=== PATIENT | male | born 1970 | race African-American/Black ===

== ENCOUNTER 2016-07-21 18:27 | Inpatient (IN) ==
[2016-07-21] MEDS ORDERED: ONDANSETRON 4 MG/2 ML VIAL IV STA (19:15)
[2016-07-21] MEDS ORDERED: SODIUM CHLORIDE 0.9% 1,000 ML IV STA (19:15)
--- NOTE | 2016-07-21 19:33 | Emergency Department Note ---
IThierry Gwan, am scribing for, and in the presence of, Lucas Rich MD 19 :26. ILayla Charles R, MD, personally performed the services described in this documentation, ascribed by Murray Guadarrama in my presence, and it is both accurate and complete 933 . Arrival - Arrival Chief Complaint: Non-Specific Stated Complaint: BP/SUGAR ED Nursing Triage Note: Pt states that his glucose was over 400 today - pt states that he has had some blurred vision. Pt states that he is out of his diabetic meds x 3 years. Accu check at time of triage 200 Mode of Arrival: Ambulatory Limitations: No Limitations Source: Patient, Old Records Reviewed, RN Notes Reviewed Time Seen by Provider: 07/21/16 19:09 - History of Present Illness HPI Narrative: Pt is a 46 y/o male, with a hx of HTN and NIDDM, who presents to the ED for further evaluation of blurred vision, dizziness, continual thirst and frequent urination. Patient stated that he has been out of his Metformin for the past 3 years and that he has not had a desire to get back on his medication due to being asymptomatic. He confirmed that today while he was working he got so dizzy he felt that he was going to fall and that he has constant tingling in bilateral upper extremities. Nurses note that during triage, pt's Accu check was 200. Patient denies any recreational drug use. He noted that he has a SHx of smoking cigarettes daily and that he has been followed by Dr. Ferguson and MEDICAL TECHNOLOGIST Ria Jasso. During exam, pt was educated on the need for him to follow up with PCP, to get back on his Metformin medications, how the tingling/numbness in bilateral extremities are going to worsen and that he is going to develop irreversible affects of him not taking care of his NIDDM. Patient confirmed that he understood and that noted that he will followup with PCP tomorrow. No other problems/complaints reported in ED. Onset (ago): year(s) Consistency: constant Severity: severe Allergies/Adverse Reactions: Allergies Allergy/AdvReac Type Severity Reaction Status Date / Time No Known Allergies Allergy Unverified 07/21/14 06:50 Home Medications: Home Medications Medication Instructions Recorded Confirmed Type HYDROcodone/ACETAMIN 10-325 [[place] 1 tablet PO Q6H 07/21/14 07/21/14 History 10-325] Pravastatin [Pravachol] 40 mg PO TID 07/21/14 07/21/14 History Zolpidem Tartrate [Ambien] 10 mg PO BEDTIME 07/21/14 07/21/14 History metFORMIN [Glucophage] 500 mg PO BID W/MEALS 07/21/14 07/21/14 History Aspirin EC Tab 81 mg PO DAILY #30 tablet 07/22/14 Rx Lisinopril [Prinivil] 20 mg PO DAILY #30 tablet 07/22/14 Rx Review of System - Review of System 12 point system: reviewed and no additional remarkable complaints except as stated - Review of System Constitutional: Present: as per HPI, other (dizziness; continual thirst ). Absent: chills, fever Gastrointestinal: Absent: abdominal pain, nausea, vomiting, diarrhea Genitourinary male: Present: as per HPI, frequency Musculoskeletal: Present: as per HPI, arm pain (tingling/numbness in both hands/ arms) Skin: Absent: rash, lesions Neurological: Absent: headache, weakness Medical,Surgical,& Family Hx - Medical History Cardio: History of: Hypertension Endocrine: History of: Diabetes Mellitus (NIDDM) Gastrointestinal: History of: GERD Musculoskeletal: History of: Back/Neck Problems, Herniated Disk No history of: Amputation - Surgical History Cardiac Surgeries: Patient Denies: Femoral-Popliteal Bypass Graft, Cardiac Catheterization, Cardiac Surgery, Carotid Endarterectomy, Internal Defibrillator, Vascular Access Devices HEENT Surgeries: Patient denies: Carotid Endarterectomy, Tonsilectomy & Adenoidectomy Abdominal Surgeries: Patient denies: Splenectomy Reproductive Surgeries: Patient denies;: Genitourinary Surgery Orthopedic Surgeries: Patient denies;: Implanted Devices, Orthopedic Surgery, Spinal Surgery, Total Hip Replacement, Total Knee Replacement - Family History Family History: Reports;: Family Diabetes (mom and dad) - Social History Smoking Status: Current every day smoker Frequency of Alcohol Use: Occasionally Type of Drug Use: None Exam Vital Signs: Vital Signs Temperature 98.1 F 07/21/16 20:23 Pulse Rate 110 H 07/21/16 20:23 Respiratory Rate 20 07/21/16 20:23 Blood Pressure 102/76 07/21/16 20:23 O2 Sat by Pulse Oximetry 98 07/21/16 18:33 - General General appearance: alert, in no apparent distress - Head Head exam: Present: atraumatic, normocephalic - Eye Eye exam: Present: normal appearance, PERRL, EOMI - ENT ENT exam: Present: mucous membranes dry - Neck Neck exam: Present: full ROM, trachea midline. Absent: tenderness, meningismus , lymphadenopathy, thyromegaly - Chest Chest inspection: Present: symmetric chest wall rise. Absent: tenderness - Respiratory Respiratory exam: Present: normal lung sounds bilaterally. Absent: respiratory distress - Cardiovascular Cardiovascular exam: Present: regular rate, normal rhythm, normal heart sounds. Absent: murmur, rubs, gallop - Extremities Exam Extremities exam: Present: full ROM - Back Exam Back exam: Present: full ROM. Absent: tenderness - Neurological Exam Neurological exam: Present: alert, oriented X3, CN II-XII intact. Absent: motor sensory deficit - Psychiatric Psychiatric exam: Present: normal affect, normal mood - Skin Skin exam: Present: warm, dry, intact, normal color Course Course Narrative: During exam, pt was educated on the need for him to follow up with PCP and to get back on his Metformin medications, how the tingling/numbness in bilateral extremities are going to worsen and that he is going to develop irreversible affects of him not taking care of his NIDDM. Patient confirmed that he understood and that noted that he will followup with PCP tomorrow. - Consultations Consultation #1: Hospitalist will admit patient Time: :18 Results - Labs CBC & BMP: 07/21/16 19:41 07/21/16 19:41 Lab Results: I have reviewed the patients labs Labs: Laboratory Tests 07/21/16 19:41 WBC 5.7 RBC 5.39 Hgb 13.1 L Hct 40.2 L MCV 74.6 L MCH 24 L Plt Count 120 L Lymph % (Auto) 21.1 L Lymph # (Auto) 1.2 L - Diagnostic Findings Procedure: Chest x-ray: report reviewed by me (Mild plmonary hypoinflation with atelectasis. ), CT: report reviewed by me (Head CT: Negative CT brain without contrast.) Disposition Clinical Impression: Hyperglycemia, Essential hypertension, Acute renal failure, Medical non- compliance Case discussed with: patient, patient's family Disposition: Still a Patient Condition: Stable Time of Disposition: 21:19
--- NOTE | 2016-07-21 19:42 | CT Report ---
CT head/brain wo con Indication: Dizziness. CT BRAIN WITH AND WITHOUT CONTRAST DLP: 915 mGy*cm. One or more of the following dose reduction techniques was used: Automated exposure control, adjustment of the mA and/or kV according the patient size, or use of iterative reconstruction techniques. Comparison: 12/16/2012. Date of admission: 07/21/2016. Technique: Axial CT images of the brain were obtained before and after the IV administration of Omnipaque 350, 80 cc. Findings: No acute hemorrhage, mass or mass effect. Ventricles and sulci are appropriate for age. Mckenna-white junction is maintained throughout. No focal bone lesions are shown. Visualized paranasal sinuses are clear. Impression: Negative CT brain without contrast. PROCEDURE INTERPRETED AT [facility] DEPARTMENT OF RADIOLOGY Final Report Signed by: Trip Doe M.D.
--- NOTE | 2016-07-21 19:42 | XRay Report ---
XR chest 1V portable Indication: Shortness of breath. Chest one view: Comparison 05/11/2013. Heart size and mediastinal contour are normal. Lungs are hypoinflated but generally clear, except for minimal bibasilar atelectasis. Pleural spaces are clear. Bones are intact. Impression: Mild pulmonary hypoinflation with atelectasis. PROCEDURE INTERPRETED AT [facility] DEPARTMENT OF RADIOLOGY Final Report Signed by: Trip Doe M.D.
[2016-07-21] MEDS ORDERED: ONDANSETRON 4 MG/2 ML VIAL ONE (19:58)
[2016-07-21 20:06] LABS: Basophils % 0.4 % (0.0-0.8); Eosinophils % 0.4 % (0.00-10.9); Hematocrit 40.2 VOL% (42.0-52.0); Hemoglobin 13.1 GM/DL (14.0-18.0); Immature Granulocytes % 0.4 %; Immature Granulocytes Absolute 0.02 #; Lymphocytes # 1.2 10*3/uL (1.4-4.0); Lymphocytes % 21.1 % (21.2-54.2); Mean Corpuscular HGB Conc 32.6 GM/DL (32-36); Mean Corpuscular Hemoglobin 24 PG (27-34); Mean Corpuscular Volume 74.6 FL (87-102); Mean Platelet Volume 11.5 FL (9.6-12.0); Monocytes # 0.5 10*3/uL (0.11-0.8); Monocytes % 8.1 % (1.7-12.7); Neutrophils % 69.6 % (38.7-73.9); Platelet Count 120 T/CUMM (130-400); Red Blood Count 5.39 MC/CUMM (3.8-5.5); Red Cell Distribution Width 14.5 % (9.3-17.3); White Blood Count 5.7 T/CUMM (4-12)
[2016-07-21 20:45] LABS: Albumin 3.7 G/DL (3.4-5.0); Bilirubin,Total 0.7 MG/DL (0.2-1.0); Calcium 9.3 MG/DL (8.5-10.1); Free T4 (Free Thyroxine) 0.9 NG/DL (0.76-1.46); Magnesium 1.7 MG/DL (1.8-2.4); Osmolality,Calculated 280.4 MOS/KG (273-304); Potassium 3.4 MMOL/L (3.5-5.1); Thyroid Stimulating Hormone 1.96 uIU/ml (0.358-3.74); Total Protein 8.1 G/DL (6.4-8.3); Troponin I Only 0.017 NG/ML (0.00-0.045)
[2016-07-21] MEDS ORDERED: MAGNESIUM SULF RIDER 2 GM in PREMIX 1 EACH IV STA (21:01)
[2016-07-21] MEDS ORDERED: MAGNESIUM SULF RIDER 50 ML IV ONE (21:12)
[2016-07-21] MEDS ORDERED: DEXTROSE 50% 25 GM/50 ML VIAL IV PRN (21:28)
[2016-07-21] MEDS ORDERED: ZALEPLON 5 MG CAPSULE PO PRN (21:28)
[2016-07-21] MEDS ORDERED: ONDANSETRON 4 MG/2 ML VIAL IV PRN (21:28)
[2016-07-21] MEDS ORDERED: GLUCAGON 1 MG VIAL IM PRN (21:28)
[2016-07-21 22:12] LABS: Sedimentation Rate-Westergren 14 MM/HR (0-15)
--- NOTE | 2016-07-21 23:00 | Hospitalist History & Physical ---
Assessment and Plan (1) Hyperglycemia Status: Acute Current Visit: Yes (2) Essential hypertension Status: Acute Current Visit: Yes (3) Acute renal failure Status: Acute Current Visit: Yes (4) Medical non-compliance Status: Acute Assessment and plan: Patient is going to be admitted to our service. Will consult nephrology get a renal ultrasound continue with IV fluids during the night hold BRIAN inhibitor. Also will do Accu-Cheks before meals and at bedtime and consult diabetic education to help educate our patient. Current Visit: Yes History of Present Illness Chief complaint: Dizziness History of present illness: Mr. Ramirez is a 46 year old male past medical history significant for hypertension diabetes and neuropathy who was in his normal state of health for the past week or so. Patient reports that he stopped drinking altogether. Started feeling bad and then thought he might go back on his blood pressure medications. He started taking his lisinopril and then started feeling bad. Says he felt wobbly at times. Says his sugars has been fluctuating and decided to come up to our hospital for further evaluation. Patient found to have a elevated creatinine 1 previous had a normal value 2 years ago I was consulted for admission Home Medications Medication Instructions Recorded Confirmed Type HYDROcodone/ACETAMIN 10-325 [[place] 1 tablet PO Q6H 07/21/14 07/21/14 History 10-325] Pravastatin [Pravachol] 40 mg PO TID 07/21/14 07/21/14 History Zolpidem Tartrate [Ambien] 10 mg PO BEDTIME 07/21/14 07/21/14 History metFORMIN [Glucophage] 500 mg PO BID W/MEALS 07/21/14 07/21/14 History Aspirin EC Tab 81 mg PO DAILY #30 tablet 07/22/14 Rx Lisinopril [Prinivil] 20 mg PO DAILY #30 tablet 07/22/14 Rx Allergies Allergy/AdvReac Type Severity Reaction Status Date / Time No Known Allergies Allergy Unverified 07/21/14 06:50 Medical,Surgical,& Family Hx - Medical History Cardio: History of: Hypertension Endocrine: History of: Diabetes Mellitus (NIDDM) Gastrointestinal: History of: GERD Musculoskeletal: History of: Back/Neck Problems, Herniated Disk No history of: Amputation - Surgical History Cardiac Surgeries: Patient Denies: Femoral-Popliteal Bypass Graft, Cardiac Catheterization, Cardiac Surgery, Carotid Endarterectomy, Internal Defibrillator, Vascular Access Devices HEENT Surgeries: Patient denies: Carotid Endarterectomy, Tonsilectomy & Adenoidectomy Abdominal Surgeries: Patient denies: Splenectomy Reproductive Surgeries: Patient denies;: Genitourinary Surgery Orthopedic Surgeries: Patient denies;: Implanted Devices, Orthopedic Surgery, Spinal Surgery, Total Hip Replacement, Total Knee Replacement - Family History Family History: Reports;: Family Diabetes (mom and dad) - Social History Smoking Status: Current every day smoker Frequency of Alcohol Use: Frequently Type of Drug Use: None 12 point system: reviewed and no additional remarkable complaints except as stated Exam - Constitutional General appearance: over weight - Head Head exam: Present: normal inspection - Eye Eye exam: Present: EOMI Pupils: Present: ANTON - ENT ENT exam: Present: normal exam - Neck Neck exam: Present: normal inspection - Respiratory Respiratory exam: Present: clear to auscultation bilaterally - Cardiovascular Cardiovascular exam: Present: regular rate and rhythm - GI/Abdominal GI/Abdominal exam: Present: normal bowel sounds - Extremities Exam Extremities exam: Present: normal inspection - Back Exam Back exam: Present: normal inspection - Neurological Exam Neurological exam: Present: alert - Psychiatric Psychiatric exam: Present: normal affect - Skin Skin exam: Present: normal color Results - Labs CBC & BMP: 07/21/16 19:41 07/21/16 19:41
[2016-07-22] MEDS: SODIUM CHLORIDE 0.9% 1,000 ML IV SCH ×4 (00:56→16:32)
[2016-07-22 06:26] LABS: Calcium 8.6 MG/DL (8.5-10.1); Magnesium 2.3 MG/DL (1.8-2.4); Osmolality,Calculated 281.1 MOS/KG (273-304); Potassium 3.4 MMOL/L (3.5-5.1)
--- NOTE | 2016-07-22 07:15 | Ultrasound Report ---
Renal ultrasound Indication: Renal failure Comparison: None available Findings: Kidneys are normal in size and echogenicity. No hydronephrosis or nephrolithiasis is seen. The right renal length is 11.8 cm. The left renal length is 11.0 cm. No free fluid or other abnormality is seen. Impression: No evidence of abnormality demonstrated. Ultrasound images stored and captured. PROCEDURE INTERPRETED AT [facility] DEPARTMENT OF RADIOLOGY Final Report Signed by: Dr. Robert Li
[2016-07-22] MEDS: PANTOPRAZOLE 40 MG TABLET PO SCH ×2 (07:38→08:48)
[2016-07-22] MEDS: INSULIN REGULAR 100 UNIT/ML SUBCUT SCH ×4 (08:47→21:27)
--- NOTE | 2016-07-22 13:31 | Nephrology Consult Note ---
History of Present Illness Chief complaint: ARF History of present illness: Mr. Ramirez is a 46 year old male who presented with dizziness and was noted to have renal failure. He has no prior history of renal failure. Renal function was normal 2 years ago. He has been taking an BRIAN inhibitor and metformin. He has also been taking NSAIDs occasionally for back pain. He denies obstructive symptoms. He's had no hematuria. He has hypertension and diabetes. Home Medications Medication Instructions Recorded Confirmed Type HYDROcodone/ACETAMIN 10-325 [[place] 1 tablet PO Q6H PRN 07/21/14 07/21/16 History 10-325] Pravastatin [Pravachol] 40 mg PO DAILY 07/21/14 07/21/14 History Zolpidem Tartrate [Ambien] 10 mg PO BEDTIME PRN 07/21/14 07/21/16 History metFORMIN [Glucophage] 500 mg PO BID W/MEALS 07/21/14 07/21/16 History Aspirin EC Tab 81 mg PO DAILY #30 tablet 07/22/14 07/21/16 Rx Lisinopril [Prinivil] 10 mg PO DAILY 07/21/16 07/21/16 History Allergies Allergy/AdvReac Type Severity Reaction Status Date / Time No Known Allergies Allergy Unverified 07/21/16 23:36 Medical,Surgical,& Family Hx - Medical History Cardio: History of: Hypertension, Cardiovascular Problems (been told he had a weak heart) Psychological: History of: Psychiatric/Substance Abuse Tx (alcohol) HEENT: History of: HEENT Problems (difficulty swallowing at times) Endocrine: History of: Diabetes Mellitus (NIDDM) Gastrointestinal: History of: GERD, Pancreatitis Musculoskeletal: History of: Back/Neck Problems, Herniated Disk, Musculoskeletal Problems (fractured tailbone) No history of: Amputation - Surgical History Cardiac Surgeries: Patient Denies: Femoral-Popliteal Bypass Graft, Cardiac Catheterization, Cardiac Surgery, Carotid Endarterectomy, Internal Defibrillator, Vascular Access Devices HEENT Surgeries: Patient denies: Carotid Endarterectomy, Tonsilectomy & Adenoidectomy Abdominal Surgeries: Patient denies: Abdominal Surgery, Splenectomy Reproductive Surgeries: Patient denies;: Genitourinary Surgery Orthopedic Surgeries: Patient denies;: Implanted Devices, Orthopedic Surgery, Spinal Surgery, Total Hip Replacement, Total Knee Replacement - Family History Family History: Reports;: Family Diabetes (mom and dad), Family Hypertension ( parents, brothers) Denies;: Family Anesthesia Reaction, Family Cancer, Family Heart Disease, Family Hematology, Family Psychiatric Problems, Family Stroke - Social History Smoking Status: Current every day smoker Frequency of Alcohol Use: Frequently Type of Drug Use: None Review of Systems 12 point system: reviewed and no additional remarkable complaints except as stated Exam - Vital Signs Vital signs: Period Temp Pulse Resp BP Sys/Sin Pulse Ox Last 24 Hr 97.8 F-98.5 F 75-80 17-20 125-175/63-71 95-99 Exam: Gen.: Alert and oriented x3. ENT: Pupils equal round reactive to light. EOMs intact. Mucous membranes moist. Neck: Supple. No JVD or bruit. Cardiovascular: Regular rate and rhythm. No murmur rub or gallop Lungs: Clear Abdomen: Soft. Nontender. Positive bowel sounds. No organomegaly Extremities: No edema Results - Labs CBC & BMP: 07/21/16 19:41 07/22/16 05:44 Assessment and Plan (1) Acute renal failure Status: Acute Assessment and plan: 46-year-old man admitted with: * ARF. He was hypotensive on admission. He was also taking an BRIAN inhibitor and NSAIDs prior to admission. Blood pressure has improved. Renal ultrasound shows no anatomic abnormalities. Renal function has improved significantly since admission. UA is pending * Diabetes mellitus. Metformin discontinued * History of hypertension Current Visit: Yes (2) Diabetes mellitus Status: Acute Current Visit: Yes (3) Essential hypertension Status: Acute Current Visit: Yes
--- NOTE | 2016-07-22 15:06 | Hospitalist Progress Note ---
Assessment and Plan - Time spent with patient Time spent with patient: Greater than 30 minutes Time spent discussing smoking cessation with patient: more than 10 minutes (1) Hyperglycemia Problem details: Add glimepiride, dc metformin. Continue insuline sliding scale. Status: Acute Current Visit: Yes (2) Essential hypertension Problem details: Add low dose norvasc. Status: Acute Current Visit: Yes (3) Smoking addiction Problem details: Educated pt on quit smoking. Add nicotine patch. Status: Acute Current Visit: No (4) Acute renal failure Problem details: Improving. Continue IVF for today. Appreciate Nephrology assistance. Status: Acute Current Visit: Yes (5) Medical non-compliance Status: Acute Current Visit: Yes (6) Diabetes mellitus Problem details: Dc metformin. Add glimepiride. Consult dietitian Status: Acute Current Visit: Yes Hospitalist: Subjective Interval history: No overnight acute event. Nausea improved. Have plenty UOP. On IVF. Deny fever, chest pain, abd pain, diarrhea, dysuria, rash or edema. Pt is a 46yo AAM with HTN and DM and noncomplient with treatment adm to our hospital on 07/21/13 due to ARF and DM with hyperglycemia Exam - Constitutional Vitals: Period Temp Pulse Resp BP Sys/Sin Pulse Ox Last 24 Hr 97.8 F-98.5 F 75-80 17-20 121-175/59-71 95-99 Exam: GENERAL: NAD, AAOx3. HEENT: Pupils equally round and reactive to light, conjunctivae clear. TMs ramsey and translucent. Oropharynx pink, with moist mucous membranes. Normal lips, teeth and gums. NECK: Supple without mass. HEART: RRR, no murmur. CHEST: Normal shape, good air movement, no retractions. CV: RRR, no murmurs, 2+ peripheral pulses LUNGS: Clear to auscultation; no rales, rhonchi, or wheezes. ABDOMEN: Soft, nontender, and no hepatosplenomegaly. SKIN: No rash or edema. LYMPH: No anterior or posterior cervical, or supraclavicular lymphadenopathy. NEURO: No gross motor deficits noted. Results - Labs CBC & BMP: 07/21/16 19:41 07/22/16 05:44
[2016-07-22] MEDS: amLODIPine 2.5 MG TABLET PO SCH (16:32)
[2016-07-22] MEDS ORDERED: ZALEPLON 5 MG CAPSULE PO SCH (21:00)
[2016-07-23] MEDS: SODIUM CHLORIDE 0.9% 1,000 ML IV SCH ×2 (00:20→09:03)
[2016-07-23 01:12] LABS: Apearance,Urine CLEAR (Clear); Bilirubin,Urine Negative (Negative); Blood, Urine Negative (Negative); Glucose,Urine (UA) >=500 mg/dL (Negative); Hyaline Casts,Urine 1 /LPF (0-3); Ketones,Urine Negative (Negative); Mucus,Urine Occasional /LPF (Occasional); Nitrite,Urine Negative (Negative); Protein,Urine Negative; RBC,Urine <1 /HPF (0-4); Squamous Epithelial Cell,Urine Occasional /HPF (0-10); Urine Color Yellow (Yellow); Urine Specific Gravity 1.009 (1.001-1.035); Urine Urobilinogen < 2.0 EU/DL (0.2-1.0); WBC,Urine 1 /HPF (0-6)
[2016-07-23 02:04] LABS: Calcium 8.5 MG/DL (8.5-10.1); Potassium 3.6 MMOL/L (3.5-5.1)
--- NOTE | 2016-07-23 07:40 | Discharge Summary ---
Hospital Course - Hospital Course Hospital Course: During hospitalization, pt received IVF, metformin and ACEI on hold, but received norvasc and glimepiride and insulin sliding scale for his HTN and DM. Nephrology consulted. Acute renal failure resolved. Stable to be dc home with Norvasc and glimepiride. Educated pt to be compliant with his medical treatment regimen. F/u with PCP clinic in 2 weeks to recheck BP and BMP. Per HPI: Mr. Ramirez is a 46 year old male past medical history significant for hypertension diabetes and neuropathy who was in his normal state of health for the past week or so. Patient reports that he stopped drinking altogether. Started feeling bad and then thought he might go back on his blood pressure medications. He started taking his lisinopril and then started feeling bad. Says he felt wobbly at times. Says his sugars has been fluctuating and decided to come up to our hospital for further evaluation. Patient found to have a elevated creatinine 1 previous had a normal value 2 years ago I was consulted for admission - Time spent with patient Time with patient DS: Greater than 30 minutes Time spent discussing smoking cessation with patient: more than 10 minutes ( Time spent: 45 min.) Diagnosis - Discharge Diagnosis (1) Hyperglycemia Status: Chronic (2) Essential hypertension Status: Chronic (3) Smoking addiction Status: Chronic (4) Acute renal failure Status: Resolved (5) Medical non-compliance Status: Chronic (6) Diabetes mellitus Status: Chronic Discharge Plan - Discharge Data Disposition: Disch To Home/Self Care Condition at Discharge: Stable Discharge Diet: diabetic diet, heart healthy Activity: resume usual activities as tolerated Hygiene: no restrictions Weight Bearing at Discharge: weight bear as tolerated Driving: no restrictions Contact your physician if you experience:: Nausea/Vomiting (Follow up with your primary care physician's clinic next week to recheck BP and BMP level) - Discharge Medications New HYDROcodone/ACETAMIN 10-325 [[place] 10-325] 1 tablet PO Q6H PRN #0 tablet PRN Reason: Pain amLODIPine [Norvasc] 2.5 mg PO DAILY #30 tablet Glimepiride [[place]mary[place]] 2 mg PO DAILY W/BREAKFAST #30 tablet Continue Pravastatin [Pravachol] 40 mg PO BEDTIME Zolpidem Tartrate [Ambien] 10 mg PO BEDTIME PRN PRN Reason: Insomnia Aspirin EC Tab 81 mg PO DAILY #30 tablet Discontinued metFORMIN [Glucophage] 500 mg PO BID W/MEALS HYDROcodone/ACETAMIN 10-325 [[place] 10-325] 1 tablet PO Q6H PRN PRN Reason: Pain Lisinopril [Prinivil] 10 mg PO DAILY - Follow Up or Referral - Forms/Instructions Additional Discharge Instructions: Follow up with your primary care physician's clinic next week to repeat BP and BMP level. Quit smoking, drinking alcohol or using recreational drugs. Exam - Constitutional Vitals: Period Temp Pulse Resp BP Sys/Sin Pulse Ox Last 24 Hr 98.0 F-98.7 F 67-78 17-20 121-175/57-80 94-99 Exam: GENERAL: NAD, AAOx3. HEENT: Pupils equally round and reactive to light, conjunctivae clear. TMs ramsey and translucent. Oropharynx pink, with moist mucous membranes. Normal lips, teeth and gums. NECK: Supple without mass. HEART: RRR, no murmur. CHEST: Normal shape, good air movement, no retractions. CV: RRR, no murmurs, 2+ peripheral pulses LUNGS: Clear to auscultation; no rales, rhonchi, or wheezes. ABDOMEN: Soft, nontender, and no hepatosplenomegaly. SKIN: No rash or edema. LYMPH: No anterior or posterior cervical, or supraclavicular lymphadenopathy. NEURO: No gross motor deficits noted. Discharge Results Labs on day of discharge: Labs from last 24 hours 07/23/16 07/23/16 07/22/16 01:01 01:01 23:00 Sodium 136 Potassium 3.6 Chloride 100 Carbon Dioxide 26 Anion Gap 13.6 BUN 16 D Creatinine 0.80 GFR Calculation 161 BUN/Creatinine Ratio 20.00 Glucose 210 H POC Glucose Hemoglobin A1c 9.5 H Calculated Osmolality 278.0 Calcium 8.5 Urine Color Yellow Urine Appearance Clear Urine pH 5.0 Ur Specific [place] 1.009 Urine Protein Negative Urine Glucose (UA) >=500 Urine Ketones Negative Urine Blood Negative Urine Nitrate Negative Urine Bilirubin Negative Urine Urobilinogen < 2.0 H Urine Leukocytes Negative Urine RBC <1 Urine WBC 1 Ur Squamous Epith Cells Occasional Hyaline Casts 1 Urine Mucus Occasional Ur Culture Indicated? Not indicated 07/22/16 07/22/16 07/22/16 20:17 16:04 11:23 Sodium Potassium Chloride Carbon Dioxide Anion Gap BUN Creatinine GFR Calculation BUN/Creatinine Ratio Glucose POC Glucose 227 H 138 H 257 H Hemoglobin A1c Calculated Osmolality Calcium Urine Color Urine Appearance Urine pH Ur Specific [place] Urine Protein Urine Glucose (UA) Urine Ketones Urine Blood Urine Nitrate Urine Bilirubin Urine Urobilinogen Urine Leukocytes Urine RBC Urine WBC Ur Squamous Epith Cells Hyaline Casts Urine Mucus Ur Culture Indicated? DS: Provider Date of admission: 07/21/16 21:28 Primary care physician: . No PCP Attending physician on admission: Jose Whitley MD Consults: 07/21/16 22:10 Consult to [facility], Educator [CONS] Routine Reason for Floor Refinisher: Diabetes Education 07/21/16 23:39 Consult to Dietitian [CONS] Routine Reason for Dietitian: Diet Recommendations 07/22/16 00:37 Consult to Pharmacy [CONS] Routine Reason for Pharmacy Consult: Adjust Meds Renal Funct 07/22/16 15:10 Consult to Dietitian [CONS] Routine Reason for Dietitian: Diet Instruction Discharging clinician: Jose Whitley MD Expected date of discharge: 07/23/16
[2016-07-23] MEDS ORDERED: GLIMEPIRIDE 2 MG TABLET PO SCH ×2 (08:00)
[2016-07-23] MEDS: INSULIN REGULAR 100 UNIT/ML SUBCUT SCH (09:01)
[2016-07-23] MEDS: amLODIPine 2.5 MG TABLET PO SCH (09:02)
[2016-07-23] MEDS: PANTOPRAZOLE 40 MG TABLET PO SCH (09:03)
[2016-07-23 09:09] VITALS: BP 168/94
--- NOTE | 2016-07-23 13:15 | Nephrology Progress Note ---
Nephrology - PN: Subj Interval history: He is asymptomatic today Exam (PN)-Nephrology - Vital Signs Vital signs: Period Temp Pulse Resp BP Sys/Sin Pulse Ox Last 24 Hr 97.2 F-98.7 F 67-78 18-20 136-168/57-94 94-97 Exam: ENT: Normal Cardiovascular: Regular rate and rhythm. No murmur rub or gallop Lungs: Clear Extremities: No edema - Lab 07/21/16 19:41 07/23/16 01:01 Most recent lab results Calcium 8.5 MG/DL (8.5-10.1) 07/23/16 01:01 Magnesium 2.3 MG/DL (1.8-2.4) 07/22/16 05:44 Assessment and Plan (1) Acute renal failure Problem details: Improving. Continue IVF for today. Appreciate Nephrology assistance. Status: Resolved Assessment and plan: 46-year-old man admitted with: * ARF. He was hypotensive on admission. Resolved. Agree with plans for discharge. He was told to avoid NSAIDs and BRIAN/ARB in the future * Diabetes mellitus. Metformin discontinued * History of hypertension Current Visit: Yes (2) Diabetes mellitus Problem details: Dc metformin. Add glimepiride. Consult dietitian Status: Chronic Current Visit: Yes (3) Essential hypertension Problem details: Add low dose norvasc. Status: Chronic Current Visit: Yes Specialty Discharge - Follow Up or Referrals
== END 2016-07-23 13:58 | disposition home or self-care (01) | DRG 638 ==
LOC: N.ED 18:27 → N.EDINP 21:28 → N.2E 07-22 00:01
PROVIDERS: ADMIT Internal Medicine; ATTEND Internal Medicine

== ENCOUNTER 2017-03-29 09:21 | Inpatient (IN) ==
[2017-03-29] MEDS ORDERED: ONDANSETRON 4 MG/2 ML VIAL IV PRN (09:35)
[2017-03-29 10:06] LABS: Basophils % 0.2 % (0.0-0.8); Eosinophils % 0.2 % (0.00-10.9); Hemoglobin 11.6 GM/DL (14.0-18.0); Immature Granulocytes % 0.5 %; Immature Granulocytes Absolute 0.02 #; Lymphocytes # 1.6 10*3/uL (1.4-4.0); Lymphocytes % 38.5 % (21.2-54.2); Mean Corpuscular HGB Conc 32.2 GM/DL (32-36); Mean Corpuscular Hemoglobin 25 PG (27-34); Mean Corpuscular Volume 77.3 FL (87-102); Mean Platelet Volume 10.6 FL (9.6-12.0); Monocytes # 0.4 10*3/uL (0.11-0.8); Monocytes % 10.5 % (1.7-12.7); Neutrophils # 2.1 10*3/uL (1.4-7.4); Neutrophils % 50.1 % (38.7-73.9); Platelet Count 198 T/CUMM (130-400); Red Blood Count 4.66 MC/CUMM (3.8-5.5); White Blood Count 4.2 T/CUMM (4-12)
[2017-03-29 10:15] LABS: PT Patient Result 10.2 SECS; Partial Thromboplastin Time 30.2 SECS (0-40)
[2017-03-29 10:45] LABS: Alanine Aminotransferase 40 U/L (16-61); Albumin 3.6 G/DL (3.4-5.0); Alkaline Phosphatase 66 U/L (45-117); Aspartate Amino Transferase 34 U/L (0-37); Blood Urea Nitrogen 18 MG/DL (7-18); Calcium 9.5 MG/DL (8.5-10.1); Glucose 177 MG/DL (74-106); Osmolality,Calculated 278.8 MOS/KG (273-304); Potassium 3.4 MMOL/L (3.5-5.1); Sodium 137 MMOL/L (136-145); Total Protein 8.2 G/DL (6.4-8.3)
[2017-03-29] MEDS ORDERED: hydrALAZINE 20 MG/1 ML VIAL IV PRN (12:44)
[2017-03-29] MEDS ORDERED: POTASSIUM CHLORIDE 20 MEQ TABLET PO ONE (13:30)
[2017-03-29] MEDS ORDERED: LORazepam 1 MG TABLET PO PRN (13:47)
[2017-03-29] MEDS ORDERED: ENOXAPARIN 40 MG/0.4 ML SYRINGE SUBCUT SCH (21:00)
[2017-03-29] MEDS ORDERED: ATORVASTATIN 40 MG TABLET PO SCH (21:00)
[2017-03-30 06:29] LABS: Risk Ratio 3.39
[2017-03-30] MEDS ORDERED: GLIMEPIRIDE 2 MG TABLET PO SCH (08:00)
[2017-03-30] MEDS ORDERED: MULTIVITAMIN (CENTRUM) TABLET PO SCH (09:00)
[2017-03-30] MEDS ORDERED: FOLIC ACID 1 MG TABLET PO SCH (09:00)
[2017-03-30] MEDS ORDERED: ASPIRIN 325 MG TABLET PO SCH (09:00)
[2017-03-30] MEDS ORDERED: amLODIPine 2.5 MG TABLET PO SCH (09:00)
[2017-03-30] MEDS ORDERED: THIAMINE 100 MG TABLET PO SCH (09:00)
[2017-03-30 12:21] VITALS: BP 146/84
== END 2017-03-30 15:27 | disposition home or self-care (01) | DRG 69 ==
LOC: N.ED 09:21 → SUATTDRO 11:54 → N.EDINP 11:54 → N.2E 13:37
PROVIDERS: ADMIT Family Medicine; ATTEND Internal Medicine